=== PATIENT | male | born 1975 | race Caucasian/White ===

== ENCOUNTER 2023-02-10 12:27 | Emergency (ER) | payer SELFPAY ==
[2023-02-10 12:35] VITALS: BP 119/74; PULSE 72; RESP 18; TEMP 97.8; BMI 31.3
[2023-02-10] MEDS ORDERED: SODIUM CHLORIDE 0.9% 500 ML INFUS.BAG IV ONE (13:27)
[2023-02-10 14:50] LABS: BASO % 0.4 % (0-2.0); HEMATOCRIT 40.2 % (35.4-49); LYMPH % 19.9 % (8-40); MCH 30.4 pg (25.7-33.7); MCHC 34.9 g/dl (32.0-35.9); MEAN CELL VOLUME 87.1 fl (80-96); MEAN PLT VOLUME 7.2 fl (7.5-11.1); NEUT % 73.7 % (42.8-82.8); PLATELET COUNT 271 10^3/uL (134-434); RBC 4.61 M/mm3 (4.00-5.60); RDW 13.6 % (11.9-15.9); WHITE BLOOD COUNT 9.7 K/mm3 (4.0-10.0)
[2023-02-10 15:42] LABS: POTASSIUM 4.4 mmol/L (3.5-5.1)
[2023-02-10 15:44] LABS: ALBUMIN 4.1 g/dl (3.4-5.0); CALCIUM 8.6 mg/dL (8.5-10.1)
[2023-02-10 15:45] LABS: BLOOD UREA NITROGEN 11.7 mg/dL (7-18)
[2023-02-10 15:47] LABS: CREATININE 0.7 mg/dL (0.55-1.3)
[2023-02-10 15:49] LABS: BILIRUBIN,TOTAL 0.5 mg/dL (0.2-1)
== END 2023-02-10 16:59 | disposition home or self-care (01) ==
LOC: JER 12:27
DX: R10.11 Right upper quadrant pain (principal); F10.90 Alcohol use, unspecified, uncomplicated; K80.20 Calculus of gallbladder without cholecystitis without obstruction; Y90.9 Presence of alcohol in blood, level not specified
CPT/HCPCS: 36415; 76705-TC; 80053; 83690; 85025; 93005; 93010; 99285-25

== ENCOUNTER 2023-11-16 10:13 | Inpatient (IN) | payer SELFPAY ==
[2023-11-16 10:35] VITALS: BMI 31.6
[2023-11-16] MEDS ORDERED: ONDANSETRON 4 MG/2 ML VIAL ONE ×2 (11:04→12:42)
[2023-11-16] MEDS ORDERED: morphine SULFATE 4 MG/ML VIAL ONE ×2 (11:04→12:37)
[2023-11-16] MEDS: morphine CARPU-JECT 4 MG/1 ML DISP.SYRIN IVPUSH ONE ×4 (11:41→13:49)
[2023-11-16] MEDS: SODIUM CHLORIDE 1,000 ML IV STA (11:42)
[2023-11-16 11:50] LABS: BASO % 0.2 % (0-2.0); HEMATOCRIT 43.4 % (35.4-49); HEMOGLOBIN 15.1 GM/dL (11.7-16.9); LYMPH % 10.4 % (8-40); MCH 30.6 pg (25.7-33.7); MCHC 34.8 g/dl (32.0-35.9); MEAN PLT VOLUME 6.9 fl (7.5-11.1); MONO % 3.8 % (3.8-10.2); NEUT % 85.6 % (42.8-82.8); PLATELET COUNT 243 10^3/uL (134-434); RBC 4.93 M/mm3 (4.00-5.60); RDW 13.7 % (11.9-15.9); WHITE BLOOD COUNT 10.9 K/mm3 (4.0-10.0)
[2023-11-16 11:59] LABS: ACTIVATED PTT 25.8 SECONDS (25.2-36.5); INR 0.98 (0.83-1.09); PROTHROMBIN TIME (PATIENT) 11.3 SEC (9.7-13.0)
[2023-11-16] MEDS: ONDANSETRON 4 MG/2 ML VIAL IVPUSH ONE ×2 (12:01→12:48)
[2023-11-16] MEDS: ONDANSETRON 4 MG TABLET PO ONE (12:01)
[2023-11-16 12:34] LABS: LACTIC ACID 2.4 mmol/L (0.4-2.0)
[2023-11-16 12:41] LABS: POTASSIUM 4.5 mmol/L (3.5-5.1)
[2023-11-16] MEDS ORDERED: MORPHINE SULFATE 2 MG/ML SYRINGE ONE ×2 (12:42→13:44)
[2023-11-16 12:43] LABS: CALCIUM 9.1 mg/dL (8.5-10.1)
[2023-11-16 12:44] LABS: ALBUMIN 4.4 g/dl (3.4-5.0)
[2023-11-16 12:47] LABS: CREATININE 0.9 mg/dL (0.55-1.3)
[2023-11-16 12:48] LABS: BILIRUBIN,TOTAL 1.9 mg/dL (0.2-1)
[2023-11-16] MEDS ORDERED: PIPERACILLIN/TAZOB 4.5 GM 4.5 GM/100 ML BAG IVPB ONE (15:35)
[2023-11-16] MEDS ORDERED: HYDROmorphone HCL CARPU-JECT 2 MG/1 ML DISP.SYRIN ONE (15:35)
[2023-11-16] MEDS: LACTATED RINGERS SOLUTION 1,000 ML/1,000 ML INFUS.BAG IV SCH ×2 (15:45→16:54)
[2023-11-16] MEDS: PIPERACILLIN/TAZOB 4.5 GM 4.5 GM/100 ML BAG IVPB ONE (15:45)
[2023-11-16] MEDS: HYDROmorphone HCl 2 MG/ML VIAL IVPUSH STA (15:45)
[2023-11-16] MEDS ORDERED: ONDANSETRON 4 MG/2 ML VIAL IVPUSH PRN (16:51)
[2023-11-16] MEDS: morphine SULFATE 4 MG/ML VIAL IVPUSH PRN (17:20)
[2023-11-16] MEDS: PIPERACILLIN/TAZOB 3.375 GM 3.375 GM in DEXTROSE 5%-WATER - 50 ML IVPB SCH (17:24)
[2023-11-16 18:23] VITALS: RESP 18
[2023-11-16] MEDS: KETOROLAC TROMETHAMINE 15 MG/ML VIAL IVPUSH PRN (18:46)
[2023-11-17 09:57] LABS: BASO % 0.1 % (0-2.0); HEMATOCRIT 39.8 % (35.4-49); HEMOGLOBIN 13.7 GM/dL (11.7-16.9); LYMPH % 7.2 % (8-40); MCH 30.5 pg (25.7-33.7); MCHC 34.3 g/dl (32.0-35.9); MEAN PLT VOLUME 6.8 fl (7.5-11.1); MONO % 6.1 % (3.8-10.2); NEUT % 86.6 % (42.8-82.8); PLATELET COUNT 208 10^3/uL (134-434); RBC 4.47 M/mm3 (4.00-5.60); WHITE BLOOD COUNT 13.8 K/mm3 (4.0-10.0)
[2023-11-17 10:04] LABS: INR 1.16 (0.83-1.09)
[2023-11-17 10:25] LABS: LACTIC ACID 3.2 mmol/L (0.4-2.0)
[2023-11-17 10:26] LABS: POTASSIUM 4.2 mmol/L (3.5-5.1)
[2023-11-17 10:28] LABS: CALCIUM 8.5 mg/dL (8.5-10.1)
[2023-11-17 10:29] LABS: ALBUMIN 3.6 g/dl (3.4-5.0); BLOOD UREA NITROGEN 11.1 mg/dL (7-18)
[2023-11-17 10:32] LABS: CREATININE 0.8 mg/dL (0.55-1.3)
[2023-11-17 10:33] LABS: BILIRUBIN,TOTAL 1.3 mg/dL (0.2-1); TOT PROT 7.2 g/dl (6.4-8.2)
[2023-11-17 11:23] LABS: BILIRUBIN,DIRECT 0.4 mg/dL (0.0-0.2)
[2023-11-17] MEDS: LACTATED RINGERS SOLUTION 1,000 ML/1,000 ML INFUS.BAG IV SCH (13:43)
[2023-11-18 08:57] LABS: BASO % 0.3 % (0-2.0); HEMATOCRIT 37.6 % (35.4-49); HEMOGLOBIN 12.8 GM/dL (11.7-16.9); LYMPH % 8.6 % (8-40); MCH 30.4 pg (25.7-33.7); MCHC 34.1 g/dl (32.0-35.9); MEAN CELL VOLUME 89.3 fl (80-96); MEAN PLT VOLUME 6.7 fl (7.5-11.1); MONO % 6.5 % (3.8-10.2); NEUT % 84.6 % (42.8-82.8); PLATELET COUNT 189 10^3/uL (134-434); RBC 4.21 M/mm3 (4.00-5.60); RDW 13.6 % (11.9-15.9); WHITE BLOOD COUNT 14.3 K/mm3 (4.0-10.0)
[2023-11-18 09:19] LABS: POTASSIUM 4.2 mmol/L (3.5-5.1)
[2023-11-18 09:23] LABS: ALBUMIN 3.3 g/dl (3.4-5.0); BLOOD UREA NITROGEN 10.2 mg/dL (7-18); CALCIUM 8.4 mg/dL (8.5-10.1)
[2023-11-18 09:27] LABS: BILIRUBIN,DIRECT 0.5 mg/dL (0.0-0.2); CREATININE 0.8 mg/dL (0.55-1.3)
[2023-11-18 09:28] LABS: BILIRUBIN,TOTAL 1.4 mg/dL (0.2-1); TOT PROT 6.7 g/dl (6.4-8.2)
[2023-11-18] MEDS: PIPERACILLIN/TAZOB 4.5 GM 4.5 GM in DEXTROSE 5%-WATER 100 ML IVPB SCH (14:12)
[2023-11-18] MEDS: PIPERACILLIN/TAZOB 3.375 GM 3.375 GM in DEXTROSE 5%-WATER - 50 ML IVPB SCH (14:21)
[2023-11-18] MEDS: LACTATED RINGERS SOLUTION 1,000 ML/1,000 ML INFUS.BAG IV SCH (15:26)
[2023-11-19 08:36] LABS: BASO % 0.2 % (0-2.0); EOS % 0.1 % (0-4.5); HEMATOCRIT 33.7 % (35.4-49); HEMOGLOBIN 11.6 GM/dL (11.7-16.9); LYMPH % 11.6 % (8-40); MCH 30.6 pg (25.7-33.7); MCHC 34.5 g/dl (32.0-35.9); MEAN CELL VOLUME 88.7 fl (80-96); MEAN PLT VOLUME 6.5 fl (7.5-11.1); MONO % 8.1 % (3.8-10.2); PLATELET COUNT 178 10^3/uL (134-434); RDW 13.4 % (11.9-15.9); WHITE BLOOD COUNT 11.4 K/mm3 (4.0-10.0)
[2023-11-19 08:53] LABS: POTASSIUM 3.8 mmol/L (3.5-5.1)
[2023-11-19 08:58] LABS: BLOOD UREA NITROGEN 10.4 mg/dL (7-18); MAGNESIUM 2.3 mg/dL (1.8-2.4)
[2023-11-19 09:00] LABS: CREATININE 0.7 mg/dL (0.55-1.3); PHOSPHOROUS 1.6 mg/dL (2.5-4.9)
[2023-11-19 09:02] LABS: BILIRUBIN,TOTAL 1.1 mg/dL (0.2-1)
[2023-11-19 09:04] LABS: TOT PROT 6.3 g/dl (6.4-8.2)
[2023-11-19] MEDS: NAPH,MB-DB/K PH,MBDB POWDER PACKET PO ONE (11:01)
[2023-11-20 09:12] LABS: BASO % 0.3 % (0-2.0); EOS % 0.4 % (0-4.5); HEMATOCRIT 34.4 % (35.4-49); HEMOGLOBIN 11.9 GM/dL (11.7-16.9); LYMPH % 14.3 % (8-40); MCH 30.9 pg (25.7-33.7); MCHC 34.7 g/dl (32.0-35.9); MEAN CELL VOLUME 89.1 fl (80-96); MEAN PLT VOLUME 6.7 fl (7.5-11.1); MONO % 8.2 % (3.8-10.2); NEUT % 76.8 % (42.8-82.8); PLATELET COUNT 225 10^3/uL (134-434); RBC 3.86 M/mm3 (4.00-5.60); RDW 13.3 % (11.9-15.9)
[2023-11-20 09:39] LABS: POTASSIUM 3.5 mmol/L (3.5-5.1)
[2023-11-20 09:53] LABS: CREATININE 0.7 mg/dL (0.55-1.3); PHOSPHOROUS 2.4 mg/dL (2.5-4.9)
[2023-11-20 09:54] LABS: TOT PROT 6.7 g/dl (6.4-8.2)
[2023-11-20 09:55] LABS: CALCIUM 8.2 mg/dL (8.5-10.1)
[2023-11-20 09:56] LABS: ALBUMIN 2.9 g/dl (3.4-5.0); BLOOD UREA NITROGEN 9.4 mg/dL (7-18); MAGNESIUM 2.3 mg/dL (1.8-2.4)
[2023-11-20 10:02] LABS: BILIRUBIN,TOTAL 1.1 mg/dL (0.2-1)
[2023-11-20] MEDS ORDERED: ACETAMINOPHEN 325 MG TABLET (FP) PO PRN (18:53)
[2023-11-20] MEDS ORDERED: morphine SULFATE 4 MG/ML VIAL IVPUSH PRN (18:54)
[2023-11-20] MEDS: POLYETHYLENE GLYCOL (HEALTHYLAX) 3350 17 GM PACKET PO SCH (21:31)
[2023-11-21 10:43] LABS: POTASSIUM 3.8 mmol/L (3.5-5.1)
[2023-11-21 10:51] LABS: ALBUMIN 2.9 g/dl (3.4-5.0); CALCIUM 8.5 mg/dL (8.5-10.1)
[2023-11-21 10:54] LABS: CREATININE 0.8 mg/dL (0.55-1.3)
[2023-11-21 10:56] LABS: BILIRUBIN,TOTAL 0.8 mg/dL (0.2-1); TOT PROT 7.2 g/dl (6.4-8.2)
[2023-11-21 13:40] VITALS: BP 118/74; PULSE 64; TEMP 98.2
== END 2023-11-21 13:45 | disposition home or self-care (01) | DRG 282 ==
LOC: JER 10:13 → JERBED 15:18 → J6S 16:38
PROVIDERS: ADMIT Internal Medicine; ATTEND Internal Medicine
DX: K85.10 Biliary acute pancreatitis without necrosis or infection (principal); E80.6 Other disorders of bilirubin metabolism; R10.13 Epigastric pain; R94.5 Abnormal results of liver function studies; D72.829 Elevated white blood cell count, unspecified; K76.0 Fatty (change of) liver, not elsewhere classified
CPT/HCPCS: 36415; 74177-TC; 74181-TC; 76705-TC; 80053; 82248; 83605; 83690; 83735; 84100; 85025; 85610; 85730; 86140; 86850; 86900; 86901; 99285-25; Q9967

== ENCOUNTER 2023-12-19 05:27 | Inpatient (IN) | payer OTHER ==
[2023-12-19] MEDS ORDERED: ACETAMINOPHEN INJECTION 100 ML IVPB ONE (06:02)
[2023-12-19 06:07] LABS: BASO % 1.2 % (0-2.0); EOS % 0.5 % (0-4.5); HEMATOCRIT 37.3 % (35.4-49); HEMOGLOBIN 12.9 GM/dL (11.7-16.9); LYMPH % 12.2 % (8-40); MCH 30.4 pg (25.7-33.7); MCHC 34.6 g/dl (32.0-35.9); MEAN CELL VOLUME 87.8 fl (80-96); MEAN PLT VOLUME 6.5 fl (7.5-11.1); MONO % 6.3 % (3.8-10.2); NEUT % 79.8 % (42.8-82.8); PLATELET COUNT 253 10^3/uL (134-434); RBC 4.25 M/mm3 (4.00-5.60); RDW 13.2 % (11.9-15.9); WHITE BLOOD COUNT 10.7 K/mm3 (4.0-10.0)
[2023-12-19] MEDS: SODIUM CHLORIDE 0.9% 500 ML INFUS.BAG IV ONE (06:11)
[2023-12-19] MEDS: ACETAMINOPHEN 1000 MG/100 ML BAG IVPB ONE (06:11)
[2023-12-19 06:31] LABS: POTASSIUM 4.5 mmol/L (3.5-5.1)
[2023-12-19 06:33] LABS: ALBUMIN 3.8 g/dl (3.4-5.0); CALCIUM 8.6 mg/dL (8.5-10.1)
[2023-12-19 06:34] LABS: BLOOD UREA NITROGEN 11.1 mg/dL (7-18)
[2023-12-19 06:37] LABS: CREATININE 0.8 mg/dL (0.55-1.3)
[2023-12-19 06:38] LABS: BILIRUBIN,TOTAL 1.6 mg/dL (0.2-1); TOT PROT 7.6 g/dl (6.4-8.2)
[2023-12-19 08:20] LABS: BILIRUBIN,DIRECT 0.8 mg/dL (0.0-0.2)
[2023-12-19] MEDS ORDERED: morphine SULFATE 4 MG/ML VIAL ONE (08:58)
[2023-12-19] MEDS ORDERED: PIPERACILLIN/TAZOB 4.5 GM 4.5 GM/100 ML BAG IVPB ONE (08:58)
[2023-12-19] MEDS: PIPERACILLIN/TAZOB 4.5 GM 4.5 GM in DEXTROSE 5%-WATER 100 ML IVPB ONE (09:05)
[2023-12-19] MEDS: morphine CARPU-JECT 4 MG/1 ML DISP.SYRIN IVPUSH ONE (09:05)
[2023-12-19] MEDS: LACTATED RINGERS SOLUTION 1,000 ML/1,000 ML INFUS.BAG IV SCH (09:25)
[2023-12-19] MEDS ORDERED: ONDANSETRON *ODT* 4 MG TABLET SL PRN (10:15)
[2023-12-19] MEDS ORDERED: MORPHINE SULFATE 2 MG/ML SYRINGE ONE (14:51)
[2023-12-20] MEDS: ACETAMINOPHEN 325 MG TABLET (FP) PO ONE (02:15)
[2023-12-20] MEDS: LACTATED RINGERS SOLUTION 1,000 ML/1,000 ML INFUS.BAG IV SCH (09:00)
[2023-12-20 09:52] LABS: BASO % 0.1 % (0-2.0); EOS % 0.7 % (0-4.5); HEMATOCRIT 34.4 % (35.4-49); HEMOGLOBIN 12.1 GM/dL (11.7-16.9); LYMPH % 9.7 % (8-40); MCH 30.5 pg (25.7-33.7); MCHC 35.2 g/dl (32.0-35.9); MEAN CELL VOLUME 86.6 fl (80-96); MEAN PLT VOLUME 6.7 fl (7.5-11.1); MONO % 7.3 % (3.8-10.2); NEUT % 82.2 % (42.8-82.8); PLATELET COUNT 234 10^3/uL (134-434); RBC 3.97 M/mm3 (4.00-5.60); RDW 13.4 % (11.9-15.9); WHITE BLOOD COUNT 11.5 K/mm3 (4.0-10.0)
[2023-12-20 10:17] LABS: POTASSIUM 4.1 mmol/L (3.5-5.1)
[2023-12-20] MEDS: PIPERACILLIN/TAZOB 3.375 GM 3.375 GM in DEXTROSE 5%-WATER - 50 ML IVPB SCH (10:19)
[2023-12-20] MEDS: ACETAMINOPHEN 1000 MG/100 ML BAG IVPB SCH (10:19)
[2023-12-20] MEDS: LACTATED RINGERS SOLUTION 1000 ML INFUS.BAG IV ONE ×2 (10:21→19:39)
[2023-12-20 10:28] LABS: CALCIUM 8.1 mg/dL (8.5-10.1)
[2023-12-20 10:29] LABS: BLOOD UREA NITROGEN 8.1 mg/dL (7-18)
[2023-12-20 10:30] LABS: ALBUMIN 3.1 g/dl (3.4-5.0)
[2023-12-20 10:32] LABS: CREATININE 0.5 mg/dL (0.55-1.3)
[2023-12-20 10:34] LABS: TOT PROT 6.5 g/dl (6.4-8.2)
[2023-12-20 10:37] LABS: BILIRUBIN,TOTAL 1.2 mg/dL (0.2-1)
[2023-12-20] MEDS ORDERED: PIPERACILLIN/TAZOB 3.375 GM 3.375 GM in DEXTROSE 5%-WATER - 50 ML IVPB SCH (18:00)
[2023-12-20] MEDS: PIPERACILLIN/TAZOB 4.5 GM 4.5 GM in DEXTROSE 5%-WATER 100 ML IVPB SCH (19:39)
[2023-12-21 10:09] LABS: BASO % 0.2 % (0-2.0); EOS % 0.8 % (0-4.5); HEMATOCRIT 33.9 % (35.4-49); HEMOGLOBIN 11.4 GM/dL (11.7-16.9); LYMPH % 10.3 % (8-40); MCH 29.8 pg (25.7-33.7); MCHC 33.7 g/dl (32.0-35.9); MEAN CELL VOLUME 88.4 fl (80-96); MEAN PLT VOLUME 7.1 fl (7.5-11.1); MONO % 6.2 % (3.8-10.2); NEUT % 82.5 % (42.8-82.8); PLATELET COUNT 245 10^3/uL (134-434); RBC 3.83 M/mm3 (4.00-5.60); RDW 13.4 % (11.9-15.9); WHITE BLOOD COUNT 12.2 K/mm3 (4.0-10.0)
[2023-12-21 10:12] LABS: POTASSIUM 4.1 mmol/L (3.5-5.1)
[2023-12-21 10:26] LABS: BLOOD UREA NITROGEN 5.5 mg/dL (7-18)
[2023-12-21 10:27] LABS: CALCIUM 8.1 mg/dL (8.5-10.1)
[2023-12-21 10:28] LABS: ALBUMIN 2.6 g/dl (3.4-5.0)
[2023-12-21 10:31] LABS: BILIRUBIN,TOTAL 0.9 mg/dL (0.2-1)
[2023-12-21 10:32] LABS: TOT PROT 5.8 g/dl (6.4-8.2)
[2023-12-21 10:42] LABS: CREATININE 0.5 mg/dL (0.55-1.3)
[2023-12-21] MEDS: ACETAMINOPHEN 325 MG TABLET (FP) PO PRN (18:23)
[2023-12-21] MEDS: SODIUM CHLORIDE 1,000 ML IV SCH (18:24)
[2023-12-22 10:07] LABS: BASO % 0.3 % (0-2.0); EOS % 1.5 % (0-4.5); HEMATOCRIT 32.1 % (35.4-49); LYMPH % 13.9 % (8-40); MCH 30.1 pg (25.7-33.7); MCHC 34.2 g/dl (32.0-35.9); MEAN PLT VOLUME 6.8 fl (7.5-11.1); MONO % 6.1 % (3.8-10.2); NEUT % 78.2 % (42.8-82.8); PLATELET COUNT 273 10^3/uL (134-434); RBC 3.65 M/mm3 (4.00-5.60); RDW 13.4 % (11.9-15.9); WHITE BLOOD COUNT 9.2 K/mm3 (4.0-10.0)
[2023-12-22 10:32] LABS: POTASSIUM 3.5 mmol/L (3.5-5.1)
[2023-12-22 10:40] LABS: ALBUMIN 2.5 g/dl (3.4-5.0); CALCIUM 7.9 mg/dL (8.5-10.1)
[2023-12-22 10:41] LABS: BLOOD UREA NITROGEN 5.6 mg/dL (7-18); MAGNESIUM 2.1 mg/dL (1.8-2.4)
[2023-12-22 10:44] LABS: CREATININE 0.5 mg/dL (0.55-1.3)
[2023-12-22 10:45] LABS: BILIRUBIN,TOTAL 0.8 mg/dL (0.2-1)
[2023-12-23] MEDS: ceFAZolin SODIUM 1 GM VIAL IVPB ONE
[2023-12-23 09:51] LABS: BASO % 0.5 % (0-2.0); EOS % 1.7 % (0-4.5); HEMATOCRIT 32.2 % (35.4-49); LYMPH % 16.2 % (8-40); MCH 29.7 pg (25.7-33.7); MCHC 34.1 g/dl (32.0-35.9); MEAN CELL VOLUME 87.2 fl (80-96); MEAN PLT VOLUME 6.6 fl (7.5-11.1); MONO % 5.9 % (3.8-10.2); NEUT % 75.7 % (42.8-82.8); PLATELET COUNT 300 10^3/uL (134-434); RBC 3.69 M/mm3 (4.00-5.60); RDW 13.4 % (11.9-15.9); WHITE BLOOD COUNT 7.7 K/mm3 (4.0-10.0)
[2023-12-23] MEDS ORDERED: ROCURONIUM BROMIDE 50 MG/5 ML SYRINGE ONE (09:53)
[2023-12-23] MEDS ORDERED: LIDOCAINE HCL/PF 2% SDV 5ML VIAL ONE (09:53)
[2023-12-23] MEDS ORDERED: MIDAZOLAM HCL 2 MG/2 ML SINGLE DOSE VIAL ONE (09:54)
[2023-12-23] MEDS ORDERED: SUCCINYLCHOLINE CHLORIDE 200 MG/10 ML SYRINGE ONE (09:54)
[2023-12-23] MEDS ORDERED: PROPOFOL 20 ML ONE (09:54)
[2023-12-23 10:12] LABS: POTASSIUM 3.4 mmol/L (3.5-5.1)
[2023-12-23 10:20] LABS: ALBUMIN 2.5 g/dl (3.4-5.0)
[2023-12-23 10:22] LABS: BILIRUBIN,TOTAL 0.4 mg/dL (0.2-1); CALCIUM 7.8 mg/dL (8.5-10.1); TOT PROT 6.2 g/dl (6.4-8.2)
[2023-12-23 10:23] LABS: CREATININE 0.5 mg/dL (0.55-1.3); MAGNESIUM 2.1 mg/dL (1.8-2.4)
[2023-12-23] MEDS ORDERED: BUPIVACAINE HCL/PF 0.25% (2.5MG/ML) 10 ML VIAL ONE (10:23)
[2023-12-23] MEDS ORDERED: INDOCYANINE GREEN 25 MG/10 ML VIAL IVPUSH ONE (10:41)
[2023-12-23] MEDS ORDERED: cefOXitin SODIUM 2 GM VIAL (RESTRICTED TO ID) IVPB ONE (10:55)
[2023-12-23] MEDS: cefoTEtan DISODIUM 2 GM VIAL (RESTRICTED TO ID) IVPB ONE (11:07)
[2023-12-23] MEDS ORDERED: DEXAMETHASONE SOD PHOSPHATE 4 MG/1 ML VIAL ONE (11:10)
[2023-12-23] MEDS: INDOCYANINE GREEN 25 MG/10 ML VIAL IVPUSH ONE (11:55)
[2023-12-23] MEDS: BUPIVACAINE HCL/PF 0.25% (2.5MG/ML) 10 ML VIAL IJ ONE ×2 (12:03)
[2023-12-23] MEDS ORDERED: NEOSTIGMINE METHYLSULFATE 0.5 MG/1 ML - 10 ML MDV ONE (12:08)
[2023-12-23] MEDS ORDERED: GLYCOPYRROLATE 0.2 MG/1 ML VIAL ONE (12:08)
[2023-12-23] MEDS ORDERED: ONDANSETRON 4 MG/2 ML VIAL IVPUSH PRN ×2 (12:12→13:11)
[2023-12-23] MEDS ORDERED: PROMETHAZINE HCL 25 MG/1 ML VIAL IVPB PRN ×2 (12:12→13:11)
[2023-12-23] MEDS ORDERED: LACTATED RINGERS SOLUTION 1,000 ML IV SCH (12:15)
[2023-12-23] MEDS ORDERED: oxyCODONE HCL 5 MG TABLET PO PRN ×2 (13:11)
[2023-12-23] MEDS ORDERED: ONDANSETRON *ODT* 4 MG TABLET SL PRN (13:11)
[2023-12-23] MEDS: ACETAMINOPHEN 1000 MG/100 ML BAG IVPB ONE ×2 (13:14→15:07)
[2023-12-23] MEDS: LACTATED RINGERS SOLUTION 1,000 ML IV SCH (14:10)
[2023-12-23] MEDS: SODIUM CHLORIDE 1,000 ML IV SCH (14:10)
[2023-12-23] MEDS: DOCUSATE SODIUM 100 MG CAPSULE (FP) PO SCH (15:13)
[2023-12-23 15:29] VITALS: RESP 18
[2023-12-23] MEDS: ACETAMINOPHEN 1000 MG/100 ML BAG IVPB SCH (20:20)
[2023-12-24 07:05] VITALS: BP 117/86; TEMP 97.7
[2023-12-24] MEDS: IBUPROFEN 600 MG TABLET (FP) PO PRN (09:08)
[2023-12-24 09:18] LABS: BASO % 0.4 % (0-2.0); HEMATOCRIT 33.5 % (35.4-49); HEMOGLOBIN 11.4 GM/dL (11.7-16.9); LYMPH % 14.9 % (8-40); MCH 29.8 pg (25.7-33.7); MEAN CELL VOLUME 87.5 fl (80-96); MEAN PLT VOLUME 6.6 fl (7.5-11.1); MONO % 5.2 % (3.8-10.2); NEUT % 79.5 % (42.8-82.8); PLATELET COUNT 378 10^3/uL (134-434); RBC 3.82 M/mm3 (4.00-5.60); RDW 13.3 % (11.9-15.9)
[2023-12-24 10:07] LABS: CALCIUM 8.8 mg/dL (8.5-10.1)
[2023-12-24 10:08] LABS: ALBUMIN 2.8 g/dl (3.4-5.0); BLOOD UREA NITROGEN 8.4 mg/dL (7-18); MAGNESIUM 2.2 mg/dL (1.8-2.4)
[2023-12-24 10:11] LABS: CREATININE 0.5 mg/dL (0.55-1.3)
[2023-12-24 10:12] LABS: BILIRUBIN,TOTAL 0.8 mg/dL (0.2-1); TOT PROT 6.7 g/dl (6.4-8.2)
[2023-12-24 10:33] VITALS: PULSE 76
[2023-12-24] MEDS ORDERED: ACETAMINOPHEN 500 MG TABLET (FP) PO PRN (13:30)
== END 2023-12-24 13:30 | disposition home or self-care (01) | DRG 263 ==
LOC: JER 05:27 → JERBED 07:51 → OBSVTOIN 12:07 → J8W 16:32
PROVIDERS: ADMIT Internal Medicine; ATTEND Nurse Practitioner Acute Care
PROC: 0FT44ZZ Resection of Gallbladder, Percutaneous Endoscopic Approach (ICD-10-PCS; principal; 2023-12-23 12:00)
DX: K85.10 Biliary acute pancreatitis without necrosis or infection (principal); K80.20 Calculus of gallbladder without cholecystitis without obstruction; K86.3 Pseudocyst of pancreas
CPT/HCPCS: 36415; 74178-TC; 74182-TC; 76705-TC; 80048; 80053; 82248; 83605; 83690; 83735; 85025; 88304-TC; 94760; 99285-25; G0378; J0131; Q9967

== ENCOUNTER 2024-02-02 04:26 | Day surgery (SDC) | payer OTHER ==
[2024-01-26 12:12] VITALS: BMI 25.8
[2024-02-02 09:04] VITALS: RESP 18; TEMP 98.4
[2024-02-02 09:29] VITALS: BP 106/69; PULSE 68
== END 2024-02-02 10:00 | disposition home or self-care (01) ==
LOC: JASU-ENDO 04:26
PROVIDERS: ATTEND Internal Medicine Gastroenterology
PROC: 0DJD8ZZ Inspection of Lower Intestinal Tract, Via Natural or Artificial Opening Endoscopic (ICD-10-PCS; principal; 2024-02-02 08:00)
DX: Z12.11 Encounter for screening for malignant neoplasm of colon (principal); K64.1 Second degree hemorrhoids; K64.8 Other hemorrhoids